=== PATIENT | female | born 1955 | race Caucasian/White ===

== ENCOUNTER 2024-01-15 16:45 | Inpatient (IN) | payer OTHER, MEDICARE, SELFPAY ==
--- NOTE | ~2024-01-15 | XR_ITS ---
EXAMINATION: XR hand LT min 3V DATE: 01/15/2024 17:12 INDICATION: Left hand cat bite and swelling. TECHNIQUE: Three views of left hand were obtained. COMPARISON: None. FINDINGS: Bone alignment is normal. No fracture. 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 IMPRESSION: 1. No fracture or radiopaque foreign body. Reviewed, dictated and finalized at location E.
--- NOTE | ~2024-01-15 | MR_ITS ---
EXAMINATION: MR hand LT wo con DATE: 01/18/2024 10:57 INDICATION: Left hand cellulitis. Cat bite near the third metacarpophalangeal joint. TECHNIQUE: Magnetic resonance imaging (MRI) of the left hand was performed without intravenous contra st. COMPARISON: Left hand radiographs 01/15/2024 FINDINGS: Bone alignment is normal. No fracture. 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 There is edema-like marrow signal intensity in head o f third metacarpal. The flexor and extensor tendons are normal. There is widespread subcutaneous aaron a of the hand and wrist. IMPRESSION: 1. Edema-like marrow signal intensity in head of third metacarpal, consistent with osteomyelitis. Reviewed, dictated and finalized at location A. IMPRESSION: 1. Edema-like marrow signal intensity in head of third metacarpal, consistent w ith osteomyelitis.
[2024-01-15 16:58] VITALS: BP 139/66; PULSE 84; RESP 20; TEMP 36.5; O2SAT 99
--- NOTE | 2024-01-15 17:05 | ED.ANIMALBIT ---
HPI - Animal Bite General Chief Complaint: Animal Bite <Moon Avilez PA-C - Last Filed: 01/15/24 17:07> Stated Complaint: cat bite <Moon Avilez PA-C - Last Filed: 01/15/24 17:07> Time Seen by Provider: 01/15/24 18:09 <Moon Avilez PA-C - Last Filed: 01/15/24 17:07> Focused HPI: 67-year-old female presents to emergency department for cat bite to the dorsum of her left hand that occurred yesterday. Patient states she has had some swelling and redness to the dorsum of her left hand. last tetanus was in 2012. States her cat is up-to-date on vaccines. She has 2 small puncture wounds to the dorsum of her hand, one that is actively draining purulence. Denies fever, nausea vomiting. GENERAL: Well-appearing, well-nourished, and in no acute distress. HEAD: Normocephalic, atraumatic. CHEST: Clear to auscultation. ?No respiratory distress. HEART: Regular rate and rhythm.? SKIN: Edema, erythema and warmth to the dorsum of the left hand extending over the MCPs. Two puncture wounds, one is draining purulence. Patient has full range of motion of fingers. Cap refill less than 2. NEURO: ?Alert and oriented x3. Patient screened in triage and initial orders placed.? ?Additional care and disposition to be based upon?diagnostic testing and treatment. <Moon Avilez PA-C - Last Filed: 01/15/24 17:07> Focused HPI: 67-year-old female presents to emergency department for cat bite to the dorsum of her left hand that occurred yesterday. Patient states she has had some swelling and redness to the dorsum of her left hand. last tetanus was in 2012. States her cat is up-to-date on vaccines. She has 2 small puncture wounds to the dorsum of her hand, one that is actively draining purulence. Denies fever, nausea vomiting. GENERAL: Well-appearing, well-nourished, and in no acute distress. HEAD: Normocephalic, atraumatic. CHEST: Clear to auscultation. ?No respiratory distress. HEART: Regular rate and rhythm.? SKIN: Edema, erythema and warmth to the dorsum of the left hand extending over the MCPs. Two puncture wounds, one is draining purulence. Patient has full range of motion of fingers. Cap refill less than 2. NEURO: ?Alert and oriented x3. Patient screened in triage and initial orders placed.? ?Additional care and disposition to be based upon?diagnostic testing and treatment. <KELLI Wellington Last Filed: 01/15/24 19:00> Source: patient <KELLI Wellington Last Filed: 01/15/24 19:00> Mode of arrival: ambulatory <KELLI Wellington Last Filed: 01/15/24 19:00> Limitations: no limitations <KELLI Wellington Last Filed: 01/15/24 19:00> History of Present Illness HPI narrative: Agree with above HPI. Patient was started on Bactrim and Flagyl yesterday. Was also given dose of Rocephin IM this morning, but denies any improvement. Denies fevers. <KELLI Wellington Last Filed: 01/15/24 19:00> Related Data Allergies/Adverse Reactions: Allergies Allergy/AdvReac Type Severity Reaction Status Date / Time amoxicillin Allergy Rash Verified 01/15/24 18:36 azithromycin [From Zithromax] Allergy Rash Verified 01/15/24 18:36 Penicillins Allergy Unknown Verified 01/15/24 16:54 <KELLI Nath Last Filed: 01/15/24 17:07> Review of Systems Review of Systems: CONSTITUTIONAL: Denies fever, chills, or sweats. SKIN: See HPI MUSCULOSKELETAL: See HPI. NEUROLOGIC: Denies headache, dizziness, numbness, or weakness. <KELLI Wellington Last Filed: 01/15/24 19:00> All systems reviewed & are unremarkable except as noted in HPI and below <KELLI Wellington Last Filed: 01/15/24 19:00> Exam Narrative: GENERAL: Well appearing, well-nourished, non-toxic, in no acute distress. HEAD: Normocephalic, atraumatic. RESPIRATORY: Airway patent, respirations nonlabored. Clear to auscultation bilaterally, no rales, rho
[2024-01-15] MEDS: TETANUS,DIPHTHERIA,AC PERTUSSIS ADULT (0.5 ML) BOOSTRIX IM (18:08)
[2024-01-15 18:18] LABS: Basophils Percent Auto 0.2 % (0.2-1.2); Eosinophils Absolute Auto 0.1 K/mm3 (0-0.3); Eosinophils Percent Auto 0.6 % (0-4.4); Hematocrit 38.5 % (37.0-47.0); Hemoglobin 12.5 g/dL (12.0-15.0); Immature Granulocyte Absolute 0.05 K/mm3 (0.00-0.031); Immature Granulocyte Percent A 0.5 % (0-0.5); Lymphocytes Absolute Auto 1.28 K/mm3 (0.9-3.2); Lymphocytes Percent Auto 11.8 % (18.3-44.2); Mean Corpuscular HGB Conc 32.5 g/dl (32-36); Mean Corpuscular Hemoglobin 31.1 pg (26-34); Mean Corpuscular Volume 95.8 fl (80-100); Mean Platelet Volume 9.5 fl (7.4-10.4); Monocytes Absolute Auto 1.3 K/mm3 (0.1-0.6); Monocytes Percent Auto 11.8 % (2.6-8.5); Neutrophils Absolute Auto 8.2 K/mm3 (1.3-6.7); Neutrophils Percent Auto 75.1 % (45.5-73.1); Platelet Count Result 250 k/mm3 (150-375); Red Blood Count 4.02 M/mm3 (4.2-5.4); Red Cell Distribution Width 12.6 % (11.5-14.5); White Blood Count 10.9 K/mm3 (4.5-10.0)
[2024-01-15 18:29] LABS: Alanine Aminotransferase 19 U/L (6-35); Albumin Level 4.9 g/dL (3.5-5.1); Alkaline Phosphatase 88 U/L (38-126); Anion Gap 10 mmol/L (4-12); Aspartate Amino Transferase 25 U/L (14-36); Bilirubin,Total 0.9 mg/dL (0.2-1.3); Blood Urea Nitrogen 10 mg/dL (7-17); CRP 4.7 mg/dL (<1.0); Calcium 9.5 mg/dL (8.4-10.2); Carbon Dioxide 21 mmol/L (22-30); Chloride 107 mmol/L (98-107); Estimated CRCL calculation 59 ml/min; Estimated Glomerular Filt Rate > 60; Glucose 104 mg/dL (65-110); Sodium 138 mmol/L (137-145)
[2024-01-15 18:55] VITALS: BP 137/84; PULSE 77; RESP 18; O2SAT 100
[2024-01-15 19:15] LABS: Lactic Acid Reflex 0.6 mmol/L (0.7-2.0)
[2024-01-15] MEDS: metroNIDAZOLE 500 MG/ISO 100ML 500 MG/100 ML BAG 100 MG IVPB (19:19)
[2024-01-15 19:22] LABS: Erythrocyte Sedimentation Rate 21 mm/hr (0-20)
[2024-01-15 20:55] VITALS: BP 134/60; PULSE 90; RESP 16; TEMP 36.8; O2SAT 99
[2024-01-15 21:11] VITALS: BMI 19.1
[2024-01-15] MEDS: ACETAMINOPHEN 325 MG TABLET 650 MG PO (22:34)
[2024-01-16 05:10] VITALS: BP 117/44; PULSE 77; RESP 20; TEMP 36.6; O2SAT 97
--- NOTE | 2024-01-16 05:45 | PM.IMHP ---
H&P: HPI History of Present Illness Date/Time: 01/16/24 02:35 Chief Complaint: Infected cat bite Narrative: 68-year-old previously healthy female who presented to the ER with infection of her left hand after a cat bite. She reports it took her diabetic cat to the vet on the at which time he bit her. About 2 hours after she received the bite her hand started to swell. As the day progressed the hand became more swollen painful and developed erythema surrounding the wound. It she reports that the wound was initially about an inch or so long. She was concerned that the cap may have bit down into her bone given the location of the bite. 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 She was started on Bactrim and Flagyl on the . The hand was so painful that she was having difficulty sleeping that night. When she woke up the erythema had spread up into her fingers and down into her wrist. Her wrist was so swollen she had to take her watch off. Her wrist was swollen despite propping her wrist above her heart for the night. She took another dose of the oral antibiotics and received a dose of Rocephin at the doctor's office when she went to work. Despite these measures the erythema and swelling continued to worsen and she had a small amount of purulent-appearing drainage from the wound. She denied any fevers or chills. She reports that the pain is a 3/10 in intensity and feels like she has got a toothache in her hand. Pain is worse with trying to close her fist or with movement of her middle finger. She took [id number] medications including Tylenol and Benadryl without relief in her symptoms. Benadryl did allow her to sleep the night before. Review of Systems Review of Systems: 12 systems were reviewed with pertinent positives and negatives per HPI. Except as documented in the HPI, all other systems were reviewed and are negative. [facility] Past Medical History Medical History (Updated 01/16/24 @ 05:56 by Betty Castro DO) No significant past medical history Surgical History Surgical History (Updated 01/16/24 @ 05:56 by Betty Castro DO) Status post cataract extraction and insertion of intraocular lens of right eye (11/2023) Family History Family History (Updated 01/16/24 @ 05:57 by Betty Castro DO) Son Diabetes mellitus Social History Social History (Updated 01/16/24 @ 05:58 by Betty Castro DO) Social History: She is and lives in her own home. She has 2 [place] osei's and a cat. She raised 3 sons. 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 She is a lifelong nonsmoker. She drinks 1-2 alcoholic beverages a week. She denies any illicit substance use. Code status: Full code Smoking status: Never smoker Alcohol intake: current Drinks per week: 1 Substance use: never Do You Feel Safe in your Home?: Yes Lack of Transportation: No Lack of Food: Never True Current Housing: I Have Housing Concerned About Future Housing: No Difficulty Paying Gas/Electric Bills: No Difficulty Paying for Meds: No Currently Unemployed: No Education: Associate Degree Difficulty w/ Childcare or Family Care: No Spiritual care concerns: No Meds Home Medications and Allergies Home Medications Medication Instructions Recorded Confirmed Type B Complex 1 tab-cap PO HS 01/16/24 01/16/24 History Centrum Silver Women 1 tab-cap PO HS 01/16/24 01/16/24 History Fish Oil 2 g PO HS 01/16/24 01/16/24 History Vitamin D3 2,000 units PO HS 01/16/24 01/16/24 History melatonin 10 mg PO HS 01/16/24 01/16/24 History metronidazole 500 mg tablet 500 mg PO BID 01/16/24 01/16/24 History sulfamethoxazole 800 1 tablet PO BID 01/16/24 01/16/24 History mg-trimethoprim 160 mg tablet Allergies Allergy/AdvReac Type Severity Reaction Status Date / Time amoxicillin Allergy Rash Verified 01/15/24 18:36 a
[2024-01-16] MEDS: SODIUM CHLORIDE 0.9% IV 250 ML 20 ML (06:06)
[2024-01-16] MEDS: metroNIDAZOLE 500 MG/ISO 100ML 500 MG/100 ML BAG 100 MG IVPB ×3 (06:07→21:25)
[2024-01-16 07:02] LABS: Basophils Percent Auto 0.3 % (0.2-1.2); Eosinophils Absolute Auto 0.1 K/mm3 (0-0.3); Eosinophils Percent Auto 1.2 % (0-4.4); Hematocrit 34.8 % (37.0-47.0); Hemoglobin 11.1 g/dL (12.0-15.0); Immature Granulocyte Absolute 0.03 K/mm3 (0.00-0.031); Immature Granulocyte Percent A 0.3 % (0-0.5); Lymphocytes Absolute Auto 1.03 K/mm3 (0.9-3.2); Lymphocytes Percent Auto 11.6 % (18.3-44.2); Mean Corpuscular HGB Conc 31.9 g/dl (32-36); Mean Corpuscular Hemoglobin 31.1 pg (26-34); Mean Corpuscular Volume 97.5 fl (80-100); Mean Platelet Volume 9.9 fl (7.4-10.4); Monocytes Percent Auto 10.7 % (2.6-8.5); Neutrophils Absolute Auto 6.8 K/mm3 (1.3-6.7); Neutrophils Percent Auto 75.9 % (45.5-73.1); Platelet Count Result 221 k/mm3 (150-375); Red Blood Count 3.57 M/mm3 (4.2-5.4); Red Cell Distribution Width 12.7 % (11.5-14.5); White Blood Count 8.9 K/mm3 (4.5-10.0)
[2024-01-16 07:19] LABS: Anion Gap 6 mmol/L (4-12); Blood Urea Nitrogen 9 mg/dL (7-17); CRP 6.4 mg/dL (<1.0); Calcium 8.8 mg/dL (8.4-10.2); Carbon Dioxide 22 mmol/L (22-30); Chloride 107 mmol/L (98-107); Estimated CRCL calculation 67 ml/min; Estimated Glomerular Filt Rate > 60; Glucose 104 mg/dL (65-110); Potassium 3.9 mmol/L (3.4-5.0); Sodium 135 mmol/L (137-145)
[2024-01-16] MEDS: ENOXAPARIN 40 MG/0.4 ML SYRINGE SUB-Q (10:07)
[2024-01-16] MEDS: ACETAMINOPHEN 325 MG TABLET 650 MG PO ×2 (11:39→17:10)
--- NOTE | 2024-01-16 12:29 | PM.IMPN ---
Progress Note: A&P Assessment and Plan (1) Cat bite of left hand with infection: Qualifiers: Encounter type: initial encounter Qualified Code(s): S61.452A - Open bite of left hand, initial encounter; L08.9 - Local infection of the skin and subcutaneous tissue, unspecified; W55.01XA - Bitten by cat, initial encounter Code(s): S61.452A - Open bite of left hand, initial encounter; L08.9 - Local infection of the skin and subcutaneous tissue, unspecified; W55.01XA - Bitten by cat, initial encounter Status: Acute Assessment and Plan: 01/16/24: Left hand x-ray was negative for any fracture or foreign body White blood cell count was 10.9 on arrival now down to 8.9 Continue with Rocephin and Flagyl for now Continue pain control Continue to ice and elevate hand Blood and wound cultures are pending Time Spent With Patient Time with patient: Greater than 35 minutes Subjective Date/time seen: 01/16/24 12:29 Interval history: This is a 68-year-old female who presented to emergency room on 01/16/24 with infected cat bite. Left hand x-ray showing no fracture or foreign body. Initial labs White blood cell count 10.9 bicarb 21, C reactive protein 4.7. Patient was started on Rocephin and Flagyl while in the ED. She also received her tetanus booster. Blood and wound cultures were obtained and pending. On examination today patient is alert oriented x3, lying in the bed. Family is at the bedside. Patient denies any fever, chills, nausea, vomiting, diarrhea, abdominal pain, chest pain, shortness a breath. Patient endorses pain, warmth, swelling to left hand with 2 puncture wounds. Labs today showed normal white blood cell count of 8.9, hemoglobin 11.1, sodium 135, C reactive protein 6.4. Continue with IV antibiotics. Review of Systems Review of Systems: All systems reviewed & are unremarkable except as noted in HPI and below Constitutional: Constitutional: Reports as per HPI and Reports no additional constitutional complaints Eyes: Eyes: Reports as per HPI and Reports no additional eye complaints ENT: Reports system reviewed and no additional complaints, except as documented and Reports as per HPI Cardiovascular: Cardiovascular: Reports as per HPI and Reports no additional cardiovascular complaints Respiratory: Respiratory: Reports as per HPI and Reports no additional respiratory complaints Gastrointestinal: Gastrointestinal: Reports as per HPI and Reports no additional gastrointestinal complaints Genitourinary: Genitourinary: Reports no additional female genitourinary complaints and Reports as per HPI Musculoskeletal: Musculoskeletal: Reports no additional musculoskeletal complaints and Reports as per HPI Integumentary/Breasts: Skin/Breast: Reports system reviewed and no additional complaints, except as docu and Reports as per HPI Neurologic: Reports system reviewed and no additional complaints, except as documented and Reports as per HPI Psychiatric: Psychiatric: Reports no additional psychiatric complaints and Reports as per HPI Exam Narrative: General: In no acute distress, well nourished Head: atraumatic, no encephalopathy Eyes: EOMI, PERRLA, sclera clear ENT: moist mucous membranes, nasal passages clear Neck: supple, no JVD, no adenopathy, trachea midline Cardiac: Normal S1 and S2. RRR, No murmur, gallops or friction rubs, peripheral pulses intact. Respiratory: Lungs clear to auscultation, no adventitious lung sounds, room air Gastrointestinal: soft, non-distended, non-tender, normoactive bowel sounds. : voiding without difficulty. Extremities: moves all extremities well, no edema, good ROM, strength 5/5 Skin: Redness, warmth, swelling to left hand with 2 puncture wounds from cat bite Neuro: Alert and oriented x4, cranial nerves intact, no neuro deficits. Psych: normal mood, normal affect, interactive Objective Data Vital Signs Vital Signs: Vital Signs - 24 hr 01/15/24 16:58 12/29
[2024-01-16 13:59] VITALS: BP 130/70; PULSE 80; RESP 16; TEMP 36.9; O2SAT 98
[2024-01-16 20:49] VITALS: BP 122/60; PULSE 70; RESP 12; TEMP 36.6; O2SAT 98
[2024-01-16] MEDS: VITAMIN B COMPLEX CAPSULE 1 CAP PO (21:25)
[2024-01-16] MEDS: MELATONIN 5 MG TABLET 10 MG PO (21:25)
[2024-01-16] MEDS: MULTIVITAMINS /C LUTEIN (CENTRUM SILVER) TABLET *BKC 1 TAB PO (21:25)
[2024-01-16] MEDS: CHOLECALCIFEROL 1,000 UNITS TABLET 2000 UNITS PO (21:25)
[2024-01-16] MEDS: OMEGA 3 POLYUNSAT FATTY ACIDS 1 GM CAP 2 GM PO (21:25)
[2024-01-16] MEDS: HYDROcodone/acetaminophen (*CRX) 5-325 MG TABLET 1 TAB PO (22:30)
[2024-01-17 05:17] VITALS: BP 121/57; PULSE 68; RESP 12; TEMP 36.1; O2SAT 99
[2024-01-17] MEDS: metroNIDAZOLE 500 MG/ISO 100ML 500 MG/100 ML BAG 100 MG IVPB ×3 (05:30→20:50)
[2024-01-17 06:32] LABS: Basophils Percent Auto 0.3 % (0.2-1.2); Eosinophils Absolute Auto 0.1 K/mm3 (0-0.3); Eosinophils Percent Auto 1.7 % (0-4.4); Hematocrit 36.3 % (37.0-47.0); Hemoglobin 11.5 g/dL (12.0-15.0); Immature Granulocyte Absolute 0.03 K/mm3 (0.00-0.031); Immature Granulocyte Percent A 0.4 % (0-0.5); Lymphocytes Absolute Auto 1.22 K/mm3 (0.9-3.2); Lymphocytes Percent Auto 15.7 % (18.3-44.2); Mean Corpuscular HGB Conc 31.7 g/dl (32-36); Mean Corpuscular Hemoglobin 31.1 pg (26-34); Mean Corpuscular Volume 98.1 fl (80-100); Mean Platelet Volume 9.5 fl (7.4-10.4); Monocytes Absolute Auto 0.8 K/mm3 (0.1-0.6); Monocytes Percent Auto 10.2 % (2.6-8.5); Neutrophils Absolute Auto 5.6 K/mm3 (1.3-6.7); Neutrophils Percent Auto 71.7 % (45.5-73.1); Platelet Count Result 234 k/mm3 (150-375); Red Cell Distribution Width 12.8 % (11.5-14.5); White Blood Count 7.8 K/mm3 (4.5-10.0)
[2024-01-17 06:36] LABS: Alanine Aminotransferase 14 U/L (6-35); Alkaline Phosphatase 66 U/L (38-126); Anion Gap 5 mmol/L (4-12); Aspartate Amino Transferase 20 U/L (14-36); Bilirubin,Total 0.6 mg/dL (0.2-1.3); Blood Urea Nitrogen 10 mg/dL (7-17); Calcium 9.1 mg/dL (8.4-10.2); Carbon Dioxide 26 mmol/L (22-30); Chloride 106 mmol/L (98-107); Estimated CRCL calculation 67 ml/min; Estimated Glomerular Filt Rate > 60; Glucose 110 mg/dL (65-110); Potassium 4.1 mmol/L (3.4-5.0); Sodium 137 mmol/L (137-145)
--- NOTE | 2024-01-17 08:29 | PM.IMPN ---
Progress Note: A&P Assessment and Plan (1) Cat bite of left hand with infection: Qualifiers: Encounter type: initial encounter Qualified Code(s): S61.452A - Open bite of left hand, initial encounter; L08.9 - Local infection of the skin and subcutaneous tissue, unspecified; W55.01XA - Bitten by cat, initial encounter Code(s): S61.452A - Open bite of left hand, initial encounter; L08.9 - Local infection of the skin and subcutaneous tissue, unspecified; W55.01XA - Bitten by cat, initial encounter Status: Acute Assessment and Plan: This is a 68-year-old female who presented to emergency room on 01/16/24 with infected cat bite. Left hand x-ray showing no fracture or foreign body. Initial labs White blood cell count 10.9 bicarb 21, C reactive protein 4.7. Patient was started on Rocephin and Flagyl while in the ED. She also received her tetanus booster in the ER. Rabies vaccination reviewed able to watch the cat and completely vaccinated. Blood and wound cultures were obtained and negative to date Still persistent swelling on the left and need to elevate. Unable to move left finger. Will get MRI to further evaluate. General surgery consultation if not improving may need some debridement Leukocytosis resolved. Continue to elevate the arm IV ceftriaxone 1 g daily will increase to 1 g Q 12 hour. Along with Flagyl 500 Q 8 DVT prophylaxis Lovenox Code status full code Subjective Date/time seen: 01/17/24 08:29 Interval history: Left and still swollen redness is a little bit still not able to move fingers as much. Pain persist. Remains afebrile. Labs reviewed. Review of Systems Review of Systems: All systems reviewed & are unremarkable except as noted in HPI and below Exam Narrative: General: In no acute distress, well nourished Head: atraumatic, no encephalopathy Eyes: EOMI, PERRLA, sclera clear ENT: moist mucous membranes, nasal passages clear Neck: supple, no JVD, no adenopathy, trachea midline Cardiac: Normal S1 and S2. RRR, No murmur, gallops or friction rubs, peripheral pulses intact. Respiratory: Lungs clear to auscultation, no adventitious lung sounds, room air Gastrointestinal: soft, non-distended, non-tender, normoactive bowel sounds. : voiding without difficulty. Extremities: moves all extremities well, no edema, good ROM, strength 5/5 Skin: Redness, warmth, swelling to left hand with 2 puncture wounds from cat bite unable to flex left middle finger Neuro: Alert and oriented x4, cranial nerves intact, no neuro deficits. Psych: normal mood, normal affect, interactive Objective Data Vital Signs Vital Signs: Vital Signs - 24 hr 01/16/24 13:59 01/16/24 20:49 01/16/24 21:25 Temperature 98.5 F 97.9 F Pulse Rate 80 70 Respiratory Rate 16 12 Blood Pressure 130/70 122/60 Pulse Oximetry 98 98 Oxygen Delivery Room Air 01/17/24 05:17 Temperature 97.0 F L Pulse Rate 68 Respiratory Rate 12 Blood Pressure 121/57 L Pulse Oximetry 99 Oxygen Delivery Intake/Output Intake/Output: Intake & Output 01/14/24 01/15/24 01/16/24 01/17/24 23:59 23:59 23:59 23:59 Intake Total 50 2170 1100 Balance 50 2170 1100 Meds/Results Medications: Active Medications Generic Name Dose Route Start Last Admin Trade Name Freq PRN Reason Stop Dose Admin Acetaminophen 650 mg 01/15/24 18:52 01/16/24 17:10 Acetaminophen 325 Mg Tablet PO 650 mg Q4H PRN Administration Mild Pain (1-3) or Fever Hydrocodone Bitart/Acetaminophen 1 tab 01/15/24 18:52 01/16/24 22:30 Hydrocodone/Acetaminophen (*Crx) 5-325 Mg Tablet PO 1 tab Q4H PRN Administration Pain Rated 4-6 Enoxaparin Sodium 40 mg 01/16/24 09:00 01/16/24 10:07 Enoxaparin 40 Mg/0.4 Ml Syringe SUB-Q 40 mg DAILY STUART Administration Fish Oil 2 gm 01/16/24 21:00 01/16/24 21:25 [place] 3 Polyunsat Fatty Acids 1 Gm Cap PO 2 gm HS STUART Administration Ceftriaxone Sodium 1 gm in 50 mls @ 10
[2024-01-17] MEDS: ENOXAPARIN 40 MG/0.4 ML SYRINGE SUB-Q (10:34)
[2024-01-17] MEDS: ACETAMINOPHEN 325 MG TABLET 650 MG PO ×4 (10:54→20:52)
[2024-01-17 14:00] VITALS: BP 119/57; PULSE 74; RESP 16; TEMP 36.3; O2SAT 100
[2024-01-17 20:28] VITALS: BP 128/70; PULSE 79; RESP 17; TEMP 36.7; O2SAT 98
[2024-01-17] MEDS: MELATONIN 5 MG TABLET 10 MG PO (20:51)
[2024-01-17] MEDS: VITAMIN B COMPLEX CAPSULE 1 CAP PO (20:51)
[2024-01-17] MEDS: CHOLECALCIFEROL 1,000 UNITS TABLET 2000 UNITS PO (20:51)
[2024-01-17] MEDS: MULTIVITAMINS /C LUTEIN (CENTRUM SILVER) TABLET *BKC 1 TAB PO (20:51)
[2024-01-17] MEDS: OMEGA 3 POLYUNSAT FATTY ACIDS 1 GM CAP 2 GM PO (20:51)
[2024-01-18 04:55] VITALS: BP 126/63; PULSE 72; RESP 16; TEMP 36.5; O2SAT 100
[2024-01-18] MEDS: metroNIDAZOLE 500 MG/ISO 100ML 500 MG/100 ML BAG 100 MG IVPB ×3 (05:04→20:52)
[2024-01-18 07:36] LABS: Basophils Percent Auto 0.5 % (0.2-1.2); Eosinophils Absolute Auto 0.2 K/mm3 (0-0.3); Eosinophils Percent Auto 2.4 % (0-4.4); Hematocrit 37.2 % (37.0-47.0); Hemoglobin 12.2 g/dL (12.0-15.0); Immature Granulocyte Absolute 0.02 K/mm3 (0.00-0.031); Immature Granulocyte Percent A 0.3 % (0-0.5); Lymphocytes Percent Auto 16.1 % (18.3-44.2); Mean Corpuscular HGB Conc 32.8 g/dl (32-36); Mean Corpuscular Hemoglobin 31.4 pg (26-34); Mean Corpuscular Volume 95.6 fl (80-100); Mean Platelet Volume 9.3 fl (7.4-10.4); Monocytes Absolute Auto 0.5 K/mm3 (0.1-0.6); Monocytes Percent Auto 8.5 % (2.6-8.5); Neutrophils Absolute Auto 4.5 K/mm3 (1.3-6.7); Neutrophils Percent Auto 72.2 % (45.5-73.1); Platelet Count Result 245 k/mm3 (150-375); Red Blood Count 3.89 M/mm3 (4.2-5.4); Red Cell Distribution Width 12.8 % (11.5-14.5); White Blood Count 6.2 K/mm3 (4.5-10.0)
[2024-01-18 07:46] LABS: Alanine Aminotransferase 13 U/L (6-35); Albumin Level 4.3 g/dL (3.5-5.1); Alkaline Phosphatase 68 U/L (38-126); Anion Gap 7 mmol/L (4-12); Aspartate Amino Transferase 20 U/L (14-36); Bilirubin,Total 0.6 mg/dL (0.2-1.3); Blood Urea Nitrogen 11 mg/dL (7-17); Calcium 9.2 mg/dL (8.4-10.2); Carbon Dioxide 23 mmol/L (22-30); Chloride 107 mmol/L (98-107); Estimated CRCL calculation 67 ml/min; Estimated Glomerular Filt Rate > 60; Glucose 110 mg/dL (65-110); Magnesium 1.8 mg/dL (1.6-2.3); Sodium 137 mmol/L (137-145)
[2024-01-18] MEDS: ACETAMINOPHEN 325 MG TABLET 650 MG PO ×3 (07:53→21:16)
[2024-01-18] MEDS: ENOXAPARIN 40 MG/0.4 ML SYRINGE SUB-Q (07:59)
--- NOTE | 2024-01-18 12:55 | PM.IMPN ---
Progress Note: A&P Assessment and Plan (1) Cat bite of left hand with infection: Qualifiers: Encounter type: initial encounter Qualified Code(s): S61.452A - Open bite of left hand, initial encounter; L08.9 - Local infection of the skin and subcutaneous tissue, unspecified; W55.01XA - Bitten by cat, initial encounter Code(s): S61.452A - Open bite of left hand, initial encounter; L08.9 - Local infection of the skin and subcutaneous tissue, unspecified; W55.01XA - Bitten by cat, initial encounter Status: Acute Assessment and Plan: This is a 68-year-old female who presented to emergency room on 01/16/24 with infected cat bite. Left hand x-ray showing no fracture or foreign body. Initial labs White blood cell count 10.9 bicarb 21, C reactive protein 4.7. Patient was started on Rocephin and Flagyl while in the ED. She also received her tetanus booster in the ER. Rabies vaccination reviewed able to watch the cat and completely vaccinated. Blood and wound cultures were obtained and negative to date Still persistent swelling on the left and need to elevate. Unable to move left finger. MRI with edema like marrow signal intensity in head of 3rd metacarpal consistent with osteomyelitis. plastic surgery consulted. Will need 6 weeks of antibiotics. Cellulitis improvement Leukocytosis resolved. Continue to elevate the arm IV ceftriaxone 1 g daily will increase to 1 g Q 12 hour. Along with Flagyl 500 Q 8 add MRSA coverage with vancomycin IV DVT prophylaxis Lovenox Code status full code Subjective Date/time seen: 01/18/24 12:55 Interval history: Discussed MRI finding with patient ,swelling is coming down. no fever chills Review of Systems Review of Systems: All systems reviewed & are unremarkable except as noted in HPI and below Exam Narrative: General: In no acute distress, well nourished Head: atraumatic, no encephalopathy Eyes: EOMI, PERRLA, sclera clear ENT: moist mucous membranes, nasal passages clear Neck: supple, no JVD, no adenopathy, trachea midline Cardiac: Normal S1 and S2. RRR, No murmur, gallops or friction rubs, peripheral pulses intact. Respiratory: Lungs clear to auscultation, no adventitious lung sounds, room air Gastrointestinal: soft, non-distended, non-tender, normoactive bowel sounds. : voiding without difficulty. Extremities: moves all extremities well, no edema, good ROM, strength 5/5 Skin: Redness, warmth, swelling to left hand with 2 puncture wounds from cat bite unable to flex left middle finger Neuro: Alert and oriented x4, cranial nerves intact, no neuro deficits. Psych: normal mood, normal affect, interactive Objective Data Vital Signs Vital Signs: Vital Signs - 24 hr 01/17/24 14:00 01/17/24 20:28 01/17/24 20:50 Temperature 97.4 F L 98.0 F Pulse Rate 74 79 Respiratory Rate 16 17 Blood Pressure 119/57 L 128/70 Pulse Oximetry 100 98 Oxygen Delivery Room Air 01/18/24 04:55 Temperature 97.7 F Pulse Rate 72 Respiratory Rate 16 Blood Pressure 126/63 Pulse Oximetry 100 Oxygen Delivery Intake/Output Intake/Output: Intake & Output 01/15/24 01/16/24 01/17/24 01/18/24 23:59 23:59 23:59 23:59 Intake Total 50 2170 2140 630 Balance 50 2170 2140 630 Meds/Results Medications: Active Medications Generic Name Dose Route Start Last Admin Trade Name Freq PRN Reason Stop Dose Admin Acetaminophen 650 mg 01/15/24 18:52 01/18/24 07:53 Acetaminophen 325 Mg Tablet PO 650 mg Q4H PRN Administration Mild Pain (1-3) or Fever Hydrocodone Bitart/Acetaminophen 1 tab 01/15/24 18:52 01/16/24 22:30 Hydrocodone/Acetaminophen (*Crx) 5-325 Mg Tablet PO 1 tab Q4H PRN Administration Pain Rated 4-6 Enoxaparin Sodium 40 mg 01/16/24 09:00 01/18/24 07:59 Enoxaparin 40 Mg/0.4 Ml Syringe SUB-Q 40 mg DAILY STUART Administration Fish Oil 2 gm 01/16/24 21:00 01/17/24 20:51 [place] 3 Polyunsat Fatty Acids 1 Gm Cap PO 2 gm
[2024-01-18 14:00] VITALS: BP 136/77; PULSE 92; RESP 12; TEMP 36.7; O2SAT 98
[2024-01-18] MEDS: VANCOMYCIN 750 MG/NS 250 ML 750 MG/250 ML BAG 250 MG IVPB (14:16)
--- NOTE | 2024-01-18 14:51 | WPDCN ---
Assessment and Plan Assessment and plan (1) Cat bite of left hand with infection: Qualifiers: Encounter type: initial encounter Qualified Code(s): S61.452A - Open bite of left hand, initial encounter; L08.9 - Local infection of the skin and subcutaneous tissue, unspecified; W55.01XA - Bitten by cat, initial encounter Code(s): S61.452A - Open bite of left hand, initial encounter; L08.9 - Local infection of the skin and subcutaneous tissue, unspecified; W55.01XA - Bitten by cat, initial encounter Status: Acute Assessment and Plan: 68yo female with resolving cat bite cellulitis and very low likelohood for osteo given time course of presentation, treatment and current exam/improvement mri images reviwed and agree with report discussed impression and Dx and hopeful expectation for contionued resolution with conservative mgmt and no surgical intervention indicated at this time discussed my feeling that patient could likley be discharged on PO abx, elevation and warm compresses and f/u with me in office if not improving discussed possible OT. patient stated understanding and agreed with plan Plan: 1) likley d/c per primary on PO abx per ID 2) warm compresses and elvation 3) f/u with me 1-2 weeks or prn HPI Data of Consult Date/Time: 01/18/24 14:51 Requesting Physician: Raisa Mae MD Primary Care Provider: Marilyn May PA-C Consult Narrative Narrative: Isa Colón is a 68 year old female who presented via ER 1 day s/p cat bite to her left hand patient had taken her cat to vet and cat bit her left hand. 2 hours later this bcame swollen and painful and later presented to the ED and was admitted for iv abx MRI noted edema around MC head suspicious for possible osteomyelitis and plastics consulted for further eval and mgmt wbc had normalized. patient seen and examined at bedside noting significant improvement since yesterday and is now able to start moving fingers again with decreased pain PMFSH Past Medical History Medical History (Updated 01/16/24 @ 05:56 by Betty Castro DO) No significant past medical history Surgical History Surgical History (Updated 01/16/24 @ 05:56 by Betty Castro DO) Status post cataract extraction and insertion of intraocular lens of right eye (11/2023) Family History Family History (Updated 01/16/24 @ 05:57 by Betty Castro DO) Son Diabetes mellitus Social History Social History (Updated 01/16/24 @ 05:58 by Betty Castro DO) Social History: She is and lives in her own home. She has 2 Romanian osei's and a cat. She raised 3 sons. 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 She is a lifelong nonsmoker. She drinks 1-2 alcoholic beverages a week. She denies any illicit substance use. Code status: Full code Smoking status: Never smoker Alcohol intake: current Drinks per week: 1 Substance use: never Do You Feel Safe in your Home?: Yes Lack of Transportation: No Lack of Food: Never True Current Housing: I Have Housing Concerned About Future Housing: No Difficulty Paying Gas/Electric Bills: No Difficulty Paying for Meds: No Currently Unemployed: No Education: Associate Degree Difficulty w/ Childcare or Family Care: No Spiritual care concerns: No Meds Home Medications and Allergies Home Medications Medication Instructions Recorded Confirmed Type B Complex 1 tab-cap PO HS 01/16/24 01/16/24 History Centrum Silver Women 1 tab-cap PO HS 01/16/24 01/16/24 History Fish Oil 2 g PO HS 01/16/24 01/16/24 History Vitamin D3 2,000 units PO HS 01/16/24 01/16/24 History melatonin 10 mg PO HS 01/16/24 01/16/24 History metronidazole 500 mg tablet 500 mg PO BID 01/16/24 01/16/24 History sulfamethoxazole 800 1 tablet PO BID 01/16/24 01/16/24 History mg-trimethoprim 160 mg tablet Allergies Allergy/AdvReac Type Severity Reaction Status Date / Time amoxicillin Allergy Rash Verified
[2024-01-18 20:30] VITALS: BP 142/79; PULSE 80; RESP 18; TEMP 36.5; O2SAT 99
[2024-01-18] MEDS: OMEGA 3 POLYUNSAT FATTY ACIDS 1 GM CAP 2 GM PO (20:50)
[2024-01-18] MEDS: MULTIVITAMINS /C LUTEIN (CENTRUM SILVER) TABLET *BKC 1 TAB PO (20:51)
[2024-01-18] MEDS: CHOLECALCIFEROL 1,000 UNITS TABLET 2000 UNITS PO (20:51)
[2024-01-18] MEDS: MELATONIN 5 MG TABLET 10 MG PO (20:51)
[2024-01-18] MEDS: VITAMIN B COMPLEX CAPSULE 1 CAP PO (20:51)
[2024-01-19] MEDS: ACETAMINOPHEN 325 MG TABLET 650 MG PO (02:22)
[2024-01-19 05:27] VITALS: BP 128/66; PULSE 69; RESP 16; TEMP 36.4; O2SAT 99
[2024-01-19] MEDS: metroNIDAZOLE 500 MG/ISO 100ML 500 MG/100 ML BAG 100 MG IVPB ×2 (05:32→13:23)
[2024-01-19] MEDS: HYDROcodone/acetaminophen (*CRX) 5-325 MG TABLET 1 TAB PO ×2 (05:36→13:25)
[2024-01-19 06:44] LABS: Basophils Percent Auto 0.6 % (0.2-1.2); Eosinophils Absolute Auto 0.1 K/mm3 (0-0.3); Eosinophils Percent Auto 2.5 % (0-4.4); Hemoglobin 12.2 g/dL (12.0-15.0); Immature Granulocyte Absolute 0.01 K/mm3 (0.00-0.031); Immature Granulocyte Percent A 0.2 % (0-0.5); Lymphocytes Absolute Auto 1.11 K/mm3 (0.9-3.2); Lymphocytes Percent Auto 21.6 % (18.3-44.2); Mean Corpuscular HGB Conc 32.1 g/dl (32-36); Mean Corpuscular Hemoglobin 31.2 pg (26-34); Mean Corpuscular Volume 97.2 fl (80-100); Mean Platelet Volume 9.6 fl (7.4-10.4); Monocytes Absolute Auto 0.5 K/mm3 (0.1-0.6); Monocytes Percent Auto 9.7 % (2.6-8.5); Neutrophils Absolute Auto 3.4 K/mm3 (1.3-6.7); Neutrophils Percent Auto 65.4 % (45.5-73.1); Platelet Count Result 263 k/mm3 (150-375); Red Blood Count 3.91 M/mm3 (4.2-5.4); Red Cell Distribution Width 12.8 % (11.5-14.5); White Blood Count 5.1 K/mm3 (4.5-10.0)
[2024-01-19 06:52] LABS: Alanine Aminotransferase 16 U/L (6-35); Albumin Level 4.1 g/dL (3.5-5.1); Alkaline Phosphatase 68 U/L (38-126); Anion Gap 7 mmol/L (4-12); Aspartate Amino Transferase 22 U/L (14-36); Bilirubin,Total 0.6 mg/dL (0.2-1.3); Blood Urea Nitrogen 9 mg/dL (7-17); Calcium 9.3 mg/dL (8.4-10.2); Carbon Dioxide 25 mmol/L (22-30); Chloride 106 mmol/L (98-107); Estimated CRCL calculation 67 ml/min; Estimated Glomerular Filt Rate > 60; Glucose 105 mg/dL (65-110); Potassium 3.9 mmol/L (3.4-5.0); Sodium 138 mmol/L (137-145)
[2024-01-19] MEDS: VANCOMYCIN 750 MG/NS 250 ML 750 MG/250 ML BAG 250 MG IVPB (09:01)
[2024-01-19] MEDS: ENOXAPARIN 40 MG/0.4 ML SYRINGE SUB-Q (09:01)
--- NOTE | 2024-01-19 13:41 | PM.DS ---
DS: Admitting Diagnosis Discharge Date 01/19/2024 Admitting Diagnosis Cat bite DS: Discharge Diagnosis Discharge Diagnosis (1) Cat bite of left hand with infection: Qualifiers: Encounter type: initial encounter Qualified Code(s): S61.452A - Open bite of left hand, initial encounter; L08.9 - Local infection of the skin and subcutaneous tissue, unspecified; W55.01XA - Bitten by cat, initial encounter Code(s): S61.452A - Open bite of left hand, initial encounter; L08.9 - Local infection of the skin and subcutaneous tissue, unspecified; W55.01XA - Bitten by cat, initial encounter Status: Acute (2) Osteomyelitis: Code(s): M86.9 - Osteomyelitis, unspecified Status: Acute DS: Summary Hospital Course Hospital Course: This is a 68-year-old female who presented to emergency room on 01/16/24 with infected cat bite.? Left hand x-ray showing no fracture or foreign body.? Initial labs White blood cell count 10.9 bicarb 21, C reactive protein 4.7.? Patient was started on Rocephin and Flagyl while in the ED. She also received her tetanus booster in the ER.? Rabies vaccination reviewed able to watch the cat and completely vaccinated.? Blood and wound cultures were obtained and negative to date Still persistent swelling on the left and need to elevate.? Unable to move left finger. ? MRI with edema like marrow signal intensity in head of 3rd metacarpal consistent with osteomyelitis.? plastic surgery consulted.? Will need 6 weeks of antibiotics.? Cellulitis improvement Leukocytosis resolved.? Continue to elevate the arm. Will switch antibiotics to oral to cover possible microorganism include Ceftin Flagyl and doxycycline to cover for MRSA DVT prophylaxis Lovenox Code status full code Time Spent with Patient Time attestation: Total time spent providing and/or coordinating discharge services: 35 minutes Exam Narrative: General: In no acute distress, well nourished Head: atraumatic, no encephalopathy Eyes: EOMI, PERRLA, sclera clear ENT: moist mucous membranes, nasal passages clear Neck: supple, no JVD, no adenopathy, trachea midline Cardiac: Normal S1 and S2. RRR, No murmur, gallops or friction rubs, peripheral pulses intact. Respiratory: Lungs clear to auscultation, no adventitious lung sounds, room air Gastrointestinal: soft, non-distended, non-tender, normoactive bowel sounds. : voiding without difficulty. Extremities: moves all extremities well, no edema, good ROM, strength 5/5 Skin: Redness, warmth, swelling to left hand with 2 puncture wounds from cat bite unable to flex left middle finger Neuro: Alert and oriented x4, cranial nerves intact, no neuro deficits. Psych: normal mood, normal affect, interactive DS: Data Data Completed and Pending Labs on day of discharge: Labs from last 24 hours 01/19/24 06:09 WBC 5.1 RBC 3.91 L Hgb 12.2 Hct 38.0 MCV 97.2 MCH 31.2 MCHC 32.1 RDW 12.8 Plt Count 263 MPV 9.6 Immature Gran % (Auto) 0.2 Neut % (Auto) 65.4 Lymph % (Auto) 21.6 Kimball % (Auto) 9.7 H Eos % (Auto) 2.5 Baso % (Auto) 0.6 Lymph # (Auto) 1.11 Kimball # (Auto) 0.5 Eos # (Auto) 0.1 Baso # (Auto) 0.0 Abs Immat Gran (auto) 0.01 Absolute Neuts (auto) 3.4 Absolute Nucleated RBC 0.000 Nucleated RBC % 0.0 Sodium 138 Potassium 3.9 Chloride 106 Carbon Dioxide 25 Anion Gap 7 BUN 9 Creatinine 0.50 L Estim Creat Clear Calc 67 Estimated GFR > 60 Glucose 105 Calcium 9.3 Total Bilirubin 0.6 AST 22 ALT 16 Alkaline Phosphatase 68 Total Protein 7.0 Albumin 4.1 Preliminary micro results at discharge 01/15/24 18:54 Blood Culture - Preliminary Blood 01/15/24 19:10 Blood Culture - Preliminary Blood Imaging Radiologist's impression: ITS Impressions Hand X-Ray 01/15/24 17:21 IMPRESSION: 1. No fracture or radiopaque foreign body. Hand MRI 01/18/24 11:01 IMPRESSION: 1. Edema-like marrow signal intensity in head of third metac
[2024-01-19 13:49] VITALS: BP 126/67; PULSE 107; RESP 18; TEMP 36.6; O2SAT 99
== END 2024-01-19 17:07 | disposition home or self-care (01) | DRG 603 ==
LOC: ANHED 19:00 → ANH3MEDSUR 19:57
PROVIDERS: Internal Medicine; Nurse Practitioner Acute Care; Physician Assistant; Admitting Provider General Practice; Emergency Provider Physician Assistant; PCP Physician Assistant Medical; Visit Provider Internal Medicine
DX: L03.114 Cellulitis of left upper limb (principal); M86.142 Other acute osteomyelitis, left hand; S61.452A Open bite of left hand, initial encounter; L08.9 Local infection of the skin and subcutaneous tissue, unspecified; W55.01XA Bitten by cat, initial encounter; Z23 Encounter for immunization
CPT/HCPCS: 36415; 73130; 73218; 80048; 80053; 83605; 83735; 85025; 85652; 86140; 87040; 87070; 87205; 90471; 90715; 96361; 96365; 96366; 96375; 99285; A9270; G0378; J0696; J1650; J1836; J3370; J7050